=== PATIENT | male | born 1965 | race Caucasian/White ===

== ENCOUNTER 2021-10-10 22:43 | Inpatient (IN) | payer OTHER ==
[~2021-10-10] VITALS: Ht 175.3 cm; Wt 105.2 kg
[~2021-10-10 22:43] MED LIST: GLIPIZIDE5 MG PO; HYZAAR 100-251 EACH PO; PROTONIX40 MG PO
[2021-10-10] MEDS ORDERED: XARELTO20 M1 (23:10)
[2021-10-10] MEDS ORDERED: GLUMETZA500 MG (23:11)
[2021-10-12] MEDS ORDERED: METRONIDAZOLE500 MG PO (17:44)
[2021-10-12] MEDS ORDERED: CIPRO500 MG PO (17:44)
== END 2021-10-13 15:02 | disposition home or self-care (01) | DRG 373 ==
LOC: ER 22:43 → SURH 10-11 08:41
PROVIDERS: ADMIT Surgery; ATTEND Surgery
DX: K35.890 Other acute appendicitis without perforation or gangrene (principal); K43.2 Incisional hernia without obstruction or gangrene; I10 Essential (primary) hypertension; E11.9 Type 2 diabetes mellitus without complications; Z79.4 Long term (current) use of insulin; I48.0 Paroxysmal atrial fibrillation; Z20.822 Contact with and (suspected) exposure to COVID-19